=== PATIENT | female | born 1945 | race Hispanic/Latino ===

== ENCOUNTER 2020-07-12 10:45 | Inpatient (IN) | payer MEDICARE, SELFPAY ==
[2020-07-12] VITALS (10 sets, daily range): BP systolic 137–168; BP diastolic 57–77; PULSE 79–90; RESP 18–34; TEMP 36.7–37.1; O2SAT 89–98; BMI 28.3
--- NOTE | ~2020-07-12 | XR_ITS ---
EXAMINATION: XR chest 1V portable INDICATION: Shortness of breath and weakness TECHNIQUE: Portable AP chest at 1229 hours COMPARISON: None available FINDINGS: There are airspace opacities of the mid and lower lung zones, left greater than right. No p leural effusion or pneumothorax is identified. The cardiomediastinal silhouette is normal. IMPRESSION: 1. Airspace opacities of the mid and lower lung zones in a pattern consistent with COVID 19 pneumonia . Differential includes other infectious process, atelectasis, and pulmonary edema. Reviewed, dictated and finalized at location A. IMPRESSION: 1. Airspace opacities of the mid and lower lung zones in a pattern consistent w ith COVID 19 pneumonia. Differential includes other infectious process, atelect asis, and pulmonary edema.
--- NOTE | ~2020-07-12 | XR_ITS ---
EXAMINATION: XR chest 1V portable INDICATION: Shortness of breath, COVID 19 TECHNIQUE: Portable AP chest at 0528 hours COMPARISON: 07/13/2020 FINDINGS: Airspace opacities of the mid and lower lung zones persist with slight improvement on the l eft and slight worsening on the right. There is no pleural effusion or pneumothorax. The heart size i s normal. IMPRESSION: 1. Airspace opacities of the mid and lower lung zones, improved on the left and slightly worse on the right, in a pattern consistent with COVID 19 pneumonia. Reviewed, dictated and finalized at location A.
--- NOTE | 2020-07-12 10:55 | ECG_ITS ---
Measurements Intervals [place] Rate: 84 P: 23 MO: 149 QRS: -32 QRSD: 92 T: 63 QT: 336 QTc: 399 Interpretive Statements SINUS RHYTHM LEFT AXIS DEVIATION VOLTAGE CRITERIA FOR LVH MINIMAL Q WAVES- HIGH LATERAL LEADS BASELINE WANDER- I, II, AVR, AVL, AVF, V1-V6 BORDERLINE ECG Electronically Signed On 07-12-2020 12:12:35 CDT by Anselmo Jay D.O.
[2020-07-12 11:17] LABS: Hematocrit 33.8 % (37.0-47.0); Hemoglobin 11.8 g/dL (12.0-15.0); Immature Granulocyte Absolute 0.02 K/mm3 (0.00-0.031); Lymphocytes Absolute Auto 0.51 K/mm3 (0.9-3.2); Lymphocytes Percent Auto 24.6 % (18.3-44.2); Mean Corpuscular HGB Conc 34.9 g/dl (32-36); Mean Corpuscular Hemoglobin 30.2 pg (26-34); Mean Corpuscular Volume 86.4 fl (80-100); Mean Platelet Volume 12.9 fl (7.4-10.4); Monocytes Absolute Auto 0.5 K/mm3 (0.1-0.6); Monocytes Percent Auto 24.2 % (2.6-8.5); Neutrophils Percent Auto 50.2 % (45.5-73.1); Platelet Count Result 110 k/mm3 (150-375); Red Blood Count 3.91 M/mm3 (4.2-5.4); Red Cell Distribution Width 12.5 % (11.5-14.5); White Blood Count 2.1 K/mm3 (4.5-10.0)
[2020-07-12 11:28] LABS: Anion Gap 8 mmol/L (8-16); Blood Urea Nitrogen 11 mg/dL (7-17); Calcium 7.9 mg/dL (8.4-10.2); Carbon Dioxide 27 mmol/L (22-30); Chloride 94 mmol/L (98-107); Estimated CRCL calculation 69 ml/min; Estimated Glomerular Filt Rate > 60; Glucose 123 mg/dL (65-105); Potassium 3.6 mmol/L (3.4-5.0); Sodium 129 mmol/L (137-145)
--- NOTE | 2020-07-12 11:51 | ED.SOB ---
HPI - SOB/Dyspnea General Chief Complaint: Shortness of Breath/Dyspnea Stated Complaint: sob, weak, decreased appetite Time Seen by Provider: 07/12/20 11:51 Source: patient Mode of arrival: ambulatory Limitations: no limitations History of Present Illness HPI Narrative: Patient is a 75-year-old Icelandic-speaking female who presents for evaluation of shortness of breath. Patient has also reported a one-week history of weakness, decreased oral intake. Patient's daughter states she has not had anything to eat or drink in over 12 days. Patient has been nauseous without vomiting. Patient denies cough, reports intermittent fever, but no fever today. Patient denies numbness in her legs, just states that she feels weak all over. Patient's intubated with COVID-19 infection, he was admitted to the hospital on July 11. Patient has not been COVID swabbed at this point. Related Data Home Medications Medication Instructions Recorded Confirmed amlodipine DAILY 07/12/20 Allergies Allergy/AdvReac Type Severity Reaction Status Date / Time No Known Allergies Allergy Verified 07/12/20 10:54 Review of Systems Review of Systems: Narrative: CONSTITUTIONAL: Reports intermittent fever, no fever today ENT: Denies rhinorrhea, congestion, sore throat, or otalgia. CARDIOVASCULAR: Denies chest pain, palpitations, or edema. RESPIRATORY: Denies cough, reports shortness of breath GASTROINTESTINAL: Denies abdominal pain, reports nausea GENITOURINARY: Denies dysuria or hematuria. SKIN: Denies rash or itching. MUSCULOSKELETAL: Denies back pain, joint pain, or myalgia. NEUROLOGIC: Denies headache, numbness, reports feeling diffusely weak PMFSH Social History Social History Smoking status: Never smoker Gender identity (if verbalized by the patient): Female Exam Narrative: Exam Narrative: GENERAL: Awake, alert, conversant HEAD: Normocephalic, atraumatic. EYES: PERRLA and EOMI. ENT: Nares clear, no rhinorrhea or epistaxis. Mucous membranes moist. NECK: Supple. CHEST: Tachypneic, no poppy respiratory distress, mild increased work of breathing, rate in the 30s HEART: Regular rate, sinus rhythm ABDOMEN:Non distended, non tender EXTREMITIES: Normal range of motion. No edema. SKIN: Warm, dry, no rash. NEURO:No focal deficits. Alert and oriented x3 Course Vital Signs Vital signs: Vital Signs Temperature 37.1 C 07/12/20 10:49 Pulse Rate 89 07/12/20 10:49 Respiratory Rate 18 07/12/20 10:49 Blood Pressure 168/57 H 07/12/20 10:49 Pulse Oximetry 92 07/12/20 10:49 Temperature 37.1 C 07/12/20 10:49 Pulse Rate 89 07/12/20 11:46 Respiratory Rate 34 H 07/12/20 11:46 Blood Pressure 161/70 H 07/12/20 11:46 Pulse Oximetry 89 L 07/12/20 11:46 MDM - SOB/Dyspnea MDM Narrative Medical decision making narrative: Patient presented for evaluation of shortness of breath, diffuse weakness. Patient has no focal neurological deficits on exam. She has intact sensation. Laboratory results are consistent with COVID-19 viral infection. Patient is pancytopenic. She has a transaminitis. Chest x-ray notable for bilateral infiltrates. Given close contact with who is currently intubated in our intensive care unit with COVID-19 infection, will treat patient as presumptive positive. Will call with swab patient. Patient will be admitted on respiratory precautions, much more comfortable at 4 L oxygen with decreased work of breathing. She was given IV steroids in the ER. Will hold on antibiotics for now. Differential Diagnosis Differential diagnosis: Likely congestive heart failure, community acquired pneumonia, asthma with exacerbation and pulmonary embolism Lab Data Attestation: I reviewed the patient's lab results. Result diagrams: 07/12/20 11:04 07/12/20 11:04 Labs: Lab Results 07/12/20 07/12/20 07/12/20 Range/Units 11:04 11
[2020-07-12 12:12] LABS: CRP 7.7 mg/dL (<1.0)
[2020-07-12 12:12] LABS: Alveolar/Arterial O2 Gradient 148.5 mmHg; Carboxyhemoglobin 0.3 % THb (0-2.0); Fractional Inspired Oxygen 36 %; HCO3 ABG 21.6 mEq/l (22.0-26.0); Methemoglobin ABG 0.3 %THb (0-1.5); Oxygen Content ABG 16.1 %vol (16.0-22.0); Oxygen Saturation ABG 96.8 % (95.0-100.0); Oxyhemoglobin 94.3 % THb (90.0-100.0); PCO2 ABG 26.6 mmHg (35.0-45.0); PO2 ABG 77.3 mmHg (80.0-100.0); PO2 FiO2 Ratio Arterial Blood 2.15 %; Reduced Hemoglobin 5.1 %THb (0-5.0); Total Hemoglobin 12.1 g/dL (12.0-18.0)
[2020-07-12 12:14] LABS: Device NASAL CANNULA; Site Drawn LEFT BRACHIAL; pH ABG 7.528 (7.350-7.450)
[2020-07-12 12:15] LABS: Alanine Aminotransferase 57 U/L (4-35); Albumin Level 3.7 g/dL (3.5-5.1); Alkaline Phosphatase 54 U/L (38-126); Anion Gap 9 mmol/L (8-16); Aspartate Amino Transferase 108 U/L (14-36); Bilirubin,Total 0.4 mg/dL (0.2-1.3); Blood Urea Nitrogen 11 mg/dL (7-17); Calcium 7.9 mg/dL (8.4-10.2); Carbon Dioxide 27 mmol/L (22-30); Chloride 94 mmol/L (98-107); Estimated CRCL calculation 59 ml/min; Estimated Glomerular Filt Rate > 60; Glucose 123 mg/dL (65-105); Sodium 130 mmol/L (137-145)
[2020-07-12 13:20] LABS: Alanine Aminotransferase 59 U/L (4-35)
--- NOTE | 2020-07-12 14:54 | PM.IMHP ---
H&P: HPI History of Present Illness Date/Time: 07/12/20 14:54 Chief complaint: Covid 19 infection/Dehydration Narrative: Nereyda Victor is a 75 year old female Whose Daughter stated that she tested positive for covid 19 in the outpatient setting and her is here in the ICU with positive COVID. She started with symptoms about 13 days ago. She never did have any fever but she had chills and was very weak had lost the taste and smell With mildnausea vomiting and no diarrhea she does has decreased oral intake. She has hardly eaten anything for the last 12 days according to the daughter. the daughter speaks Amharic and is at the bedside in the emergency room. The daughters answering questions for me. The patient has been short of breath and came to the emergency room to be evaluated for. I did retest her because it was unclear if she really had been tested or not. The patient is very weak. She is afebrile at this point. She was placed on 4 L per nasal cannula. Chest x-ray noted for bilateral infiltrates. Patient was being treated for presumptive positive as her is in ICU and had been COVID positive. she has pancytopenia. patient was given steroids in the emergency room and she stated she started to feel somewhat better although she still in the oxygen. Date of service 07/12/2020 Review of Systems Review of Systems: All systems reviewed & are unremarkable except as noted in HPI and below Constitutional: Constitutional: Reports as per HPI and Reports no additional constitutional complaints Eyes: Eyes: Reports as per HPI and Reports no additional eye complaints ENT: Reports system reviewed and no additional complaints, except as documented and Reports Normal hearing present Cardiovascular: Cardiovascular: Reports no additional cardiovascular complaints Respiratory: Respiratory: Reports no additional respiratory complaints and Reports no additional respiratory complaints Gastrointestinal: Gastrointestinal: Reports as per HPI and Reports no additional gastrointestinal complaints Musculoskeletal: Musculoskeletal: Reports no additional musculoskeletal complaints Integumentary/Breasts: Skin/Breast: Reports system reviewed and no additional complaints, except as docu and Reports as per HPI Neurologic: Reports system reviewed and no additional complaints, except as documented, Reports as per HPI and Reports Normal hearing present Psychiatric: Psychiatric: Reports no additional psychiatric complaints and Reports as per HPI Endocrine: Endocrine: Reports no additional endocrine complaints Hematologic/Lymphatic: Hematologic/Lymphatic: Reports no additional hematologic/lymphatic complaints Allergic/Immunologic: Allergic/Immunologic: Reports no additional allergic/immunologic complaints PMFSH Past Medical History Medical History (Updated 07/12/20 @ 15:21 by Chio Melchor NP) Abnormal glucose Bilateral leg weakness Hypertension, essential, benign Iliotibial band syndrome of right side Surgical History Surgical History (Updated 07/12/20 @ 15:12 by Chio Melchor NP) No history of previous surgery Social History Social History (Updated 07/12/20 @ 15:14 by Chio Melchor NP) Social History: the patient is retired she has worked various jobs. She does not have a durable power securities attorney for healthcare. She desires to be full code. She had a children but 1 was a stillborn. She tried to smoke in school But did not smoke routine easily. She Does not use any alcohol marijuana or illicit drugs. Smoking packs per day: 0.2 Smoking cigarettes per day: 4.0 Years smoked: 10 Smoking pack-years: 2.00 Smoking status: Never smoker Alcohol intake: never Substance use: never Gender identity (if verbalized by the patient): Female Spiritual care concerns: No Meds Home Medications and Allergies Home Medications Medication Instructions Recorded Confirmed Type amlodipine 5 mg
[2020-07-12] MEDS: REMDESIVIR 200 MG/NS 250 ML 200 MG/250 ML BAG 250 MG IVPB (15:45)
[2020-07-12] MEDS: ONDANSETRON INJ 4 MG/2 ML VIAL IV PUSH (15:45)
[2020-07-12] MEDS: SODIUM CHLORIDE 0.9% IV 1,000 ML 100 ML IV CONT (15:45)
[2020-07-13] VITALS (13 sets, daily range): BP systolic 134–172; BP diastolic 58–73; PULSE 54–86; RESP 16–32; TEMP 35.5–37.2; O2SAT 91–97
[2020-07-13] MEDS: SODIUM CHLORIDE 0.9% IV 1,000 ML 100 ML IV CONT (05:39)
[2020-07-13 06:24] LABS: Basophils Percent Auto 0.6 % (0.2-1.2); Hematocrit 36.8 % (37.0-47.0); Hemoglobin 12.3 g/dL (12.0-15.0); Immature Granulocyte Absolute 0.01 K/mm3 (0.00-0.031); Immature Granulocyte Percent A 0.6 % (0-0.5); Lymphocytes Absolute Auto 0.34 K/mm3 (0.9-3.2); Mean Corpuscular HGB Conc 33.4 g/dl (32-36); Mean Corpuscular Hemoglobin 29.3 pg (26-34); Mean Corpuscular Volume 87.6 fl (80-100); Mean Platelet Volume 11.9 fl (7.4-10.4); Monocytes Absolute Auto 0.3 K/mm3 (0.1-0.6); Monocytes Percent Auto 19.4 % (2.6-8.5); Neutrophils Percent Auto 59.4 % (45.5-73.1); Platelet Count Result 134 k/mm3 (150-375); Red Cell Distribution Width 12.3 % (11.5-14.5)
[2020-07-13 06:46] LABS: White Blood Count 1.7 K/mm3 (4.5-10.0)
[2020-07-13 06:49] LABS: Burr Cells 1+ (NORMAL)
[2020-07-13 08:39] LABS: Alanine Aminotransferase 58 U/L (4-35); Albumin Level 3.4 g/dL (3.5-5.1); Alkaline Phosphatase 54 U/L (38-126); Anion Gap 10 mmol/L (8-16); Aspartate Amino Transferase 93 U/L (14-36); Bilirubin,Total 0.3 mg/dL (0.2-1.3); Blood Urea Nitrogen 14 mg/dL (7-17); CRP 7.9 mg/dL (<1.0); Calcium 7.5 mg/dL (8.4-10.2); Carbon Dioxide 23 mmol/L (22-30); Chloride 101 mmol/L (98-107); Estimated CRCL calculation 68 ml/min; Estimated Glomerular Filt Rate > 60; Glucose 148 mg/dL (65-105); Magnesium 2.3 mg/dL (1.6-2.3); Potassium 3.6 mmol/L (3.4-5.0); Sodium 134 mmol/L (137-145)
[2020-07-13] MEDS: amLODIPine BESYLATE 5 MG TABLET PO (08:45)
[2020-07-13 12:41] LABS: Alveolar/Arterial O2 Gradient 329.4 mmHg; Base Excess ABG -4.5 mEq/l (+/-2.0); Fractional Inspired Oxygen 60 %; HCO3 ABG 18.4 mEq/l (22.0-26.0); Modified Allen's Test Pass; Oxygen Content ABG 17.3 %vol (16.0-22.0); Oxygen Saturation ABG 94.2 % (95.0-100.0); Oxyhemoglobin 91.3 % THb (90.0-100.0); PCO2 ABG 28.3 mmHg (35.0-45.0); PO2 ABG 67.3 mmHg (80.0-100.0); PO2 FiO2 Ratio Arterial Blood 1.12 %; Site Drawn RIGHT RADIAL; Total Hemoglobin 13.5 g/dL (12.0-18.0); pH ABG 7.432 (7.350-7.450)
[2020-07-13 12:42] LABS: Device HIGH FLOW NASAL CANN
[2020-07-13 14:22] LABS: SARS-CoV-2 RNA PCR Positive
--- NOTE | 2020-07-13 14:45 | PM.IMPN ---
Progress Note: A&P Assessment and Plan (1) COVID-19: Code(s): U07.1 - COVID-19 Status: Acute Assessment and Plan: ----- Patient continues to require more and more oxygen although does not feel like she is distressed. Her COVID-19 test is positive and her inflammatory markers are elevated. She also has leukopenia as well. since she is requiring more oxygen, she is going to be moved to ICU as IMU status and will be monitored closer. Her IV fluids have been stopped earlier today. Will repeat inflammatory markers and chest x-ray tomorrow morning. She does have a guarded prognosis at this time. Continue room does severe and dexamethasone. (2) Pancytopenia: Code(s): D61.818 - Other pancytopenia Status: Acute Assessment and Plan: ----- Likely related to viral syndrome. Monitor (3) Hypertension, essential, benign: Code(s): I10 - Essential (primary) hypertension Status: Chronic Assessment and Plan: ----- last blood pressure 152/72. Continue Norvasc (4) Bilateral leg weakness: Code(s): R29.898 - Other symptoms and signs involving the musculoskeletal system Status: Acute Assessment and Plan: ----- likely due to viral syndrome and inability to eat and drink very well. Will order PT and OT (5) Hypoxia: Code(s): R09.02 - Hypoxemia Status: Acute Assessment and Plan: most likely due to the viral syndrome her chest x-ray (6) Acute respiratory failure with hypoxia: Code(s): J96.01 - Acute respiratory failure with hypoxia Status: Acute Assessment and Plan: ----- secondary to above. Continue oxygen supplementation. Additional Plan I spoke with the financial services specialist, Dr. Rivera about this patient. Plan to moved to ICU as IMU status for further monitoring. Time Spent With Patient Time with patient: 25 - 35 minutes Subjective Date/time seen: 07/13/20 14:45 Interval history: Pt is a 75-year-old female here for possible COVID pneumonia who was seen today. All of our interactions were through [facility] interpretation. Patient states that she is feeling slightly better when compared to yesterday but still feels short of breath. She was able to get up and walk to the bathroom but felt winded. Her cough is consistent. She has not been eating and drinking but was able to get a little soup down today. She has no chest pain, diarrhea, nausea, vomiting or constipation. Review of Systems Review of Systems: All systems reviewed & are unremarkable except as noted in HPI and below Exam Narrative: Exam Narrative: General: Well developed well nourished patient Resting comfortably in bed in no acute distress HEENT: normocephalic Neck: supple Neuro: Alert and oriented x4 CV:RRR Resp: patient currently on 10 L high-flow nasal cannula unable to speak in full sentences without dyspnea or retractions. Lungs were auscultated throughout disposable stethoscope which lower sensitivity but appeared clear. Abd: Soft, non distended. No pain to palpation. Positive bowel sounds Extremities: No swelling, erythema, or pain to palpation. Objective Data Vital Signs Vital Signs: Vital Signs - 24 hr 07/12/20 16:21 07/12/20 20:00 07/12/20 21:42 Temperature 98.0 F Pulse Rate 79 Respiratory Rate 22 H Blood Pressure 156/59 H Pulse Oximetry 94 94 95 07/13/20 00:00 07/13/20 04:00 07/13/20 08:00 Temperature 98.9 F 97 F L 97.7 F Pulse Rate 74 64 84 Respiratory Rate 22 H 20 18 Blood Pressure 148/58 H 134/60 172/61 H Pulse Oximetry 97 91 91 07/13/20 08:08 07/13/20 10:24 07/13/20 12:00 Temperature 97.9 F Pulse Rate 62 75 Respiratory Rate 18 Blood Pressure 152/73 H Pulse Oximetry 93 96 07/13/20 12:20 07/13/20 12:42 Temperature Pulse Rate Respiratory Rate Blood Pressure Pulse Oximetry 94 94 Intake/Output Intake/Output: Intake & Output 07/10/20 07/11/20
[2020-07-13] MEDS: REMDESIVIR 100 MG/NS 250 ML 100 MG/250 ML BAG 250 MG IVPB (16:00)
[2020-07-13] MEDS: ALBUTEROL SULFATE (*SP) AEROSOL 1 PUFF 2 PUFF INHALATION ×2 (16:24→21:11)
--- NOTE | 2020-07-13 18:59 | PC.NURSE ---
Pt to ICU 2 per PA due to low 02 sats requiring greater than 15L HFNC 02. Tried to call report to [facility], but he was unable to take report at this time. [facility] said to take her down. Bedside report given. Family called and made aware of transfer.
[2020-07-14] VITALS (11 sets, daily range): BP systolic 114–190; BP diastolic 55–76; PULSE 29–90; RESP 24–30; TEMP 35.4–36.4; O2SAT 83–94
[2020-07-14 04:55] LABS: Hematocrit 39.4 % (37.0-47.0); Hemoglobin 13.7 g/dL (12.0-15.0); Mean Corpuscular HGB Conc 34.8 g/dl (32-36); Mean Corpuscular Volume 86.2 fl (80-100); Mean Platelet Volume 12.7 fl (7.4-10.4); Platelet Count Result 195 k/mm3 (150-375); Red Blood Count 4.57 M/mm3 (4.2-5.4); Red Cell Distribution Width 12.6 % (11.5-14.5); White Blood Count 6.9 K/mm3 (4.5-10.0)
[2020-07-14 05:08] LABS: D Dimer 1.23 ug/mL (<0.48)
[2020-07-14 05:21] LABS: Alanine Aminotransferase 59 U/L (4-35); Albumin Level 3.6 g/dL (3.5-5.1); Alkaline Phosphatase 59 U/L (38-126); Anion Gap 9 mmol/L (8-16); Aspartate Amino Transferase 76 U/L (14-36); Bilirubin,Total 0.4 mg/dL (0.2-1.3); Blood Urea Nitrogen 16 mg/dL (7-17); CRP 4.7 mg/dL (<1.0); Calcium 7.7 mg/dL (8.4-10.2); Carbon Dioxide 23 mmol/L (22-30); Chloride 102 mmol/L (98-107); Estimated CRCL calculation 82 ml/min; Estimated Glomerular Filt Rate > 60; Glucose 156 mg/dL (65-105); Lactate Dehydrogenase 1199 U/L (313-618); Potassium 3.4 mmol/L (3.4-5.0); Sodium 134 mmol/L (137-145)
--- NOTE | 2020-07-14 08:05 | PCOTNOTE ---
Hold today per RN due to patient low saturation levels. Will attempt OT evaluation when medically appropriate.
[2020-07-14] MEDS: amLODIPine BESYLATE 5 MG TABLET PO (08:32)
[2020-07-14] MEDS: ALBUTEROL SULFATE (*SP) AEROSOL 1 PUFF 2 PUFF INHALATION ×3 (08:33→20:43)
--- NOTE | 2020-07-14 09:14 | PCPTNOTE ---
Pt eval on hold per RN due to low saturation levels. Will try again when medically stable.
--- NOTE | 2020-07-14 10:45 | PM.IMPN ---
Progress Note: A&P Assessment and Plan (1) COVID-19: Code(s): U07.1 - COVID-19 Status: Acute Assessment and Plan: ----- Patient continues to require more and more oxygen although does not feel like she is distressed. she has mostly hypoxic on any type of movement. COVID-19 is positive and inflammatory markers are elevated. Chest x-ray today looks a bit worse. She is now on 15 L high-flow but overall feeling okay. Continue Remdesivir and dexamethasone. (2) Pancytopenia: Code(s): D61.818 - Other pancytopenia Status: Acute Assessment and Plan: ----- Resolved. Likely related to viral syndrome. Monitor (3) Hypertension, essential, benign: Code(s): I10 - Essential (primary) hypertension Status: Chronic Assessment and Plan: ----- last blood pressure 174/75 but has improved after home meds. Continue Norvasc. There is PRN hydralazine as needed as well. (4) Bilateral leg weakness: Code(s): R29.898 - Other symptoms and signs involving the musculoskeletal system Status: Acute Assessment and Plan: ----- likely due to viral syndrome and inability to eat and drink very well. Continue PT and OT (5) Hypoxia: Code(s): R09.02 - Hypoxemia Status: Acute (6) Acute respiratory failure with hypoxia: Code(s): J96.01 - Acute respiratory failure with hypoxia Status: Acute Assessment and Plan: ----- secondary to above. Continue oxygen supplementation. Subjective Date/time seen: 07/14/20 10:45 Interval history: Pt is a 75-year-old female here for COVID-19. Patient was seen today with nurse at bedside and communicated through [facility]. Patient states she feels better today although she feels very winded when she moves. She would like to get out of bed but understands why she can't. She is not really coughing too much. She is eating and drinking a little better but has to force herself to do so. She denies chest pain, nausea, vomiting, fevers, chills, diarrhea or constipation. She does have a history of constipation and feels like she is little constipated but thinks it is mostly just having to go to the bathroom in bed Exam Narrative: Exam Narrative: General: Well developed well nourished patient Resting comfortably in bed in no acute distress HEENT: normocephalic Neck: supple Neuro: Alert and oriented x4 CV:RRR Resp: patient currently on 15 L high-flow nasal cannula able to speak in full sentences without dyspnea or retractions. when she does any type of movement she desats in the 80s. Lungs were auscultated through disposable stethoscope which lower sensitivity but appeared clear. Abd: Soft, non distended. No pain to palpation. Positive bowel sounds Extremities: No swelling, erythema, or pain to palpation. Objective Data Vital Signs Vital Signs: Vital Signs - 24 hr 07/13/20 12:00 07/13/20 12:20 07/13/20 12:42 Temperature 97.9 F Pulse Rate 75 Respiratory Rate 18 Blood Pressure 152/73 H Pulse Oximetry 96 94 94 07/13/20 15:36 07/13/20 16:00 07/13/20 16:25 Temperature 96.1 F L 96 F L Pulse Rate 76 77 78 Respiratory Rate 16 29 H 32 H Blood Pressure 163/70 H 152/72 H Pulse Oximetry 93 95 95 07/13/20 20:00 07/13/20 21:11 07/14/20 00:00 Temperature 97.1 F L 97.4 F L Pulse Rate 63 65 Respiratory Rate 25 H 28 H Blood Pressure 146/62 H 145/63 H Pulse Oximetry 97 91 93 07/14/20 04:00 07/14/20 05:00 07/14/20 06:21 Temperature 97.6 F Pulse Rate 81 71 Respiratory Rate 29 H 29 H Blood Pressure 172/69 H Pulse Oximetry 83 L 93 93 07/14/20 08:00 Temperature 96.3 F L Pulse Rate 80 Respiratory Rate 24 H Blood Pressure 174/75 H Pulse Oximetry 94 Intake/Output Intake/Output: Intake & Output 07/11/20 07/12/20 07/13/20 07/14/20 23:59 23:59 23:59 23:59 Intake Total 150 2355 180 Output Total 350 375 Balance 150 2004 - Meds/Results Karissa
[2020-07-14 12:56] LABS: Magnesium 2.2 mg/dL (1.6-2.3)
[2020-07-14] MEDS: REMDESIVIR 100 MG/NS 250 ML 100 MG/250 ML BAG 250 MG IVPB (15:55)
[2020-07-14] MEDS: hydrALAZINE HCL 20 MG/ML VIAL 10 MG IV PUSH (21:00)
[2020-07-14] MEDS: cloNIDine HCL 0.1 MG TABLET PO (23:14)
[2020-07-15] VITALS (25 sets, daily range): BP systolic 121–166; BP diastolic 49–99; PULSE 59–91; RESP 17–32; TEMP 35.5–36.3; O2SAT 91–99
[2020-07-15 05:58] LABS: Hematocrit 39.7 % (37.0-47.0); Mean Corpuscular HGB Conc 35.3 g/dl (32-36); Mean Corpuscular Hemoglobin 30.4 pg (26-34); Mean Corpuscular Volume 86.3 fl (80-100); Mean Platelet Volume 12.9 fl (7.4-10.4); Platelet Count Result 228 k/mm3 (150-375); Red Cell Distribution Width 12.7 % (11.5-14.5); White Blood Count 11.1 K/mm3 (4.5-10.0)
[2020-07-15 06:14] LABS: Potassium 3.2 mmol/L (3.4-5.0)
[2020-07-15 06:17] LABS: Alanine Aminotransferase 61 U/L (4-35); Anion Gap 9 mmol/L (8-16); Blood Urea Nitrogen 16 mg/dL (7-17); CRP 2.8 mg/dL (<1.0); Calcium 8.4 mg/dL (8.4-10.2); Carbon Dioxide 26 mmol/L (22-30); Chloride 97 mmol/L (98-107); Estimated CRCL calculation 68 ml/min; Estimated Glomerular Filt Rate > 60; Glucose 114 mg/dL (65-105); Magnesium 2.1 mg/dL (1.6-2.3); Phosphorus 2.9 mg/dL (2.5-4.5); Sodium 132 mmol/L (137-145)
[2020-07-15] MEDS: ALBUTEROL SULFATE (*SP) AEROSOL 1 PUFF 2 PUFF INHALATION ×4 (09:15→20:42)
[2020-07-15] MEDS: amLODIPine BESYLATE 5 MG TABLET PO (09:19)
[2020-07-15] MEDS: POTASSIUM CHLORIDE 20 MEQ TABLET 40 MEQ PO (09:23)
[2020-07-15] MEDS: LORazepam 0.5 MG TABLET PO (10:28)
[2020-07-15] MEDS: REMDESIVIR 100 MG/NS 250 ML 100 MG/250 ML BAG 250 MG IVPB (15:45)
--- NOTE | 2020-07-15 16:30 | PM.IMPN ---
Progress Note: A&P Assessment and Plan (1) COVID-19: Code(s): U07.1 - COVID-19 Status: Acute Assessment and Plan: ----- Patient is now requiring less o2 and is down to 7L but becomes hypoxic with any movements. COVID-19 is positive and inflammatory markers are elevated. Chest x-ray today looks a bit worse. Continue Remdesivir and dexamethasone. (2) Pancytopenia: Code(s): D61.818 - Other pancytopenia Status: Acute Assessment and Plan: ----- Resolved. Likely related to viral syndrome. Monitor (3) Hypertension, essential, benign: Code(s): I10 - Essential (primary) hypertension Status: Chronic Assessment and Plan: ----- last blood pressure 142/72 Continue Norvasc. There is PRN hydralazine as needed as well. (4) Bilateral leg weakness: Code(s): R29.898 - Other symptoms and signs involving the musculoskeletal system Status: Acute Assessment and Plan: ----- likely due to viral syndrome and inability to eat and drink very well. Continue PT and OT (5) Hypoxia: Code(s): R09.02 - Hypoxemia Status: Acute (6) Acute respiratory failure with hypoxia: Code(s): J96.01 - Acute respiratory failure with hypoxia Status: Acute Assessment and Plan: ----- secondary to above. Continue oxygen supplementation. Subjective Date/time seen: 07/15/20 16:30 Interval history: Pt is a 75-year-old female here for COVID-19. [facility] Patient was seen today and has no complaints. She says she feels better every day. She really wants some enchaladas and does not like our food here. She has no CP, SOB, abdominal pain, fevers, chills, nausea or vomiting. Exam Narrative: Exam Narrative: General: Well developed well nourished patient Resting comfortably in bed in no acute distress HEENT: normocephalic Neck: supple Neuro: Alert and oriented x4 CV:RRR Resp: patient currently on 7 L high-flow nasal cannula able to speak in full sentences without dyspnea or retractions. Lungs were auscultated through disposable stethoscope which lower sensitivity but appeared clear. Abd: Soft, non distended. No pain to palpation. Positive bowel sounds Extremities: No swelling, erythema, or pain to palpation. Objective Data Vital Signs Vital Signs: Vital Signs - 24 hr 07/14/20 20:00 07/14/20 20:43 07/14/20 21:00 Temperature 97.2 F L Pulse Rate 84 84 90 Respiratory Rate 27 H 28 H 25 H Blood Pressure 171/66 H 170/55 H Pulse Oximetry 91 92 92 07/14/20 22:53 07/15/20 00:00 07/15/20 04:00 Temperature 97.0 F L 97.4 F L Pulse Rate 71 87 Respiratory Rate 31 H 26 H Blood Pressure 190/66 H 128/55 L 154/96 H Pulse Oximetry 98 96 07/15/20 08:00 07/15/20 08:01 07/15/20 09:13 Temperature 97.3 F L Pulse Rate 78 71 86 Respiratory Rate 28 H 24 H Blood Pressure 166/74 H Pulse Oximetry 99 96 07/15/20 09:14 07/15/20 10:00 07/15/20 10:01 Temperature Pulse Rate 86 89 87 Respiratory Rate 24 H 18 Blood Pressure 145/99 H Pulse Oximetry 96 07/15/20 12:00 07/15/20 12:01 07/15/20 13:00 Temperature Pulse Rate 81 73 88 Respiratory Rate 20 24 H Blood Pressure 130/51 L Pulse Oximetry 92 97 07/15/20 13:01 07/15/20 14:00 07/15/20 14:01 Temperature 95.9 F L Pulse Rate 67 71 79 Respiratory Rate 32 H 24 H Blood Pressure 134/69 121/55 L Pulse Oximetry 96 96 07/15/20 15:01 07/15/20 15:42 07/15/20 15:45 Temperature Pulse Rate 91 86 Respiratory Rate 17 Blood Pressure 134/66 Pulse Oximetry 91 96 07/15/20 16:01 Temperature 96.8 F L Pulse Rate 81 Respiratory Rate 30 H Blood Pressure 142/72 H Pulse Oximetry 94 Intake/Output Intake/Output: Intake & Output 07/12/20 07/13/20 07/14/20 07/15/20 23:59 23:59 23:59 23:59 Intake Total 150 2355 670 620 Output Total 350 875 850 Balance 150 2004 Meds/
[2020-07-16] VITALS (19 sets, daily range): BP systolic 136–183; BP diastolic 61–76; PULSE 58–103; RESP 18–30; TEMP 36.3–36.6; O2SAT 91–98
[2020-07-16] MEDS: LORazepam 0.5 MG TABLET PO (03:31)
[2020-07-16 03:39] LABS: Hematocrit 38.7 % (37.0-47.0); Hemoglobin 13.3 g/dL (12.0-15.0); Mean Corpuscular HGB Conc 34.4 g/dl (32-36); Mean Corpuscular Hemoglobin 29.8 pg (26-34); Mean Corpuscular Volume 86.8 fl (80-100); Mean Platelet Volume 11.6 fl (7.4-10.4); Platelet Count Result 231 k/mm3 (150-375); Red Blood Count 4.46 M/mm3 (4.2-5.4); Red Cell Distribution Width 12.5 % (11.5-14.5); White Blood Count 7.2 K/mm3 (4.5-10.0)
[2020-07-16 03:56] LABS: Alanine Aminotransferase 53 U/L (4-35)
[2020-07-16 04:01] LABS: Anion Gap 8 mmol/L (8-16); Blood Urea Nitrogen 13 mg/dL (7-17); CRP 4.5 mg/dL (<1.0); Calcium 8.5 mg/dL (8.4-10.2); Carbon Dioxide 26 mmol/L (22-30); Chloride 100 mmol/L (98-107); Estimated CRCL calculation 57 ml/min; Estimated Glomerular Filt Rate > 60; Glucose 111 mg/dL (65-105); Lactate Dehydrogenase 1072 U/L (313-618); Potassium 3.4 mmol/L (3.4-5.0); Sodium 134 mmol/L (137-145)
[2020-07-16] MEDS: amLODIPine BESYLATE 5 MG TABLET PO (08:37)
[2020-07-16] MEDS: ALBUTEROL SULFATE (*SP) AEROSOL 1 PUFF 2 PUFF INHALATION ×4 (08:45→20:37)
--- NOTE | 2020-07-16 14:15 | PCPTNOTE ---
The PT treatment was unable to be completed today. Per PA, patient recently returned to bed and is tired. Will continue per Plan of Care frequency and duration.
--- NOTE | 2020-07-16 14:19 | PM.IMPN ---
Progress Note: A&P Assessment and Plan (1) COVID-19: Code(s): U07.1 - COVID-19 Status: Acute Assessment and Plan: ----- Patient is now requiring less o2 and is down to 5L but becomes hypoxic with movements. Okay to move out of ICU and onto a medical floor with tele/pulse ox. COVID-19 is positive and inflammatory markers are elevated. Continue Remdesivir and dexamethasone. (2) Pancytopenia: Code(s): D61.818 - Other pancytopenia Status: Acute Assessment and Plan: ----- Resolved. Likely related to viral syndrome. Monitor (3) Hypertension, essential, benign: Code(s): I10 - Essential (primary) hypertension Status: Chronic Assessment and Plan: ----- last blood pressure 136/61. Continue Norvasc. There is PRN hydralazine as needed as well. (4) Bilateral leg weakness: Code(s): R29.898 - Other symptoms and signs involving the musculoskeletal system Status: Acute Assessment and Plan: ----- likely due to viral syndrome and inability to eat and drink very well. Continue PT and OT (5) Hypoxia: Code(s): R09.02 - Hypoxemia Status: Acute (6) Acute respiratory failure with hypoxia: Code(s): J96.01 - Acute respiratory failure with hypoxia Status: Acute Assessment and Plan: ----- secondary to above. Continue oxygen supplementation. Subjective Date/time seen: 07/16/20 14:19 Interval history: Pt is a 75-year-old female here for COVID-19. Patient was seen today and communicated through [employer]. Patient was seen today and has no complaints other than being tired. She says she feels better every day. She was able to sit in the chair for awhile today but did feel sob when transferring. She has no CP, SOB, abdominal pain, fevers, chills, diarrhea, constipation, nausea or vomiting. Exam Narrative: Exam Narrative: General: Well developed well nourished patient Resting comfortably in bed in no acute distress HEENT: normocephalic Neck: supple Neuro: Alert and oriented x4 CV:RRR Resp: patient currently on 5 L high-flow nasal cannula able to speak in full sentences without dyspnea or retractions. Lungs were auscultated through disposable stethoscope which lower sensitivity but appeared clear. Abd: Soft, non distended. No pain to palpation. Positive bowel sounds Extremities: No swelling, erythema, or pain to palpation. Objective Data Vital Signs Vital Signs: Vital Signs - 24 hr 07/15/20 15:01 07/15/20 15:42 07/15/20 15:45 Temperature Pulse Rate 91 86 Respiratory Rate 17 Blood Pressure 134/66 Pulse Oximetry 91 96 07/15/20 16:00 07/15/20 16:01 07/15/20 18:00 Temperature 96.8 F L Pulse Rate 84 81 89 Respiratory Rate 30 H Blood Pressure 142/72 H Pulse Oximetry 94 07/15/20 20:00 07/15/20 20:42 07/15/20 20:45 Temperature 97.3 F L Pulse Rate 68 62 62 Respiratory Rate 26 H 24 H 24 H Blood Pressure 139/49 L Pulse Oximetry 96 96 07/15/20 22:00 07/15/20 23:37 07/16/20 00:00 Temperature Pulse Rate 59 L 60 59 L Respiratory Rate 19 25 H Blood Pressure 143/62 H Pulse Oximetry 91 92 07/16/20 02:00 07/16/20 03:35 07/16/20 04:00 Temperature Pulse Rate 60 76 70 Respiratory Rate 25 H Blood Pressure Pulse Oximetry 91 07/16/20 05:30 07/16/20 06:00 07/16/20 08:00 Temperature 97.8 F Pulse Rate 58 L 72 69 Respiratory Rate 22 H Blood Pressure 140/66 Pulse Oximetry 98 07/16/20 08:44 07/16/20 08:45 07/16/20 09:40 Temperature 98 F Pulse Rate 72 96 98 Respiratory Rate 22 H 18 Blood Pressure 163/76 H Pulse Oximetry 98 95 07/16/20 11:08 07/16/20 12:00 07/16/20 13:52 Temperature 98 F Pulse Rate 76 72 103 H Respiratory Rate 22 H 24 H Blood Pressure 136/61 Pulse Oximetry 95 96 Intake/Output Intake/Output: Intake & Output 07/13/20 07/14/20 07/15/20 07/16/20 23:59 23:59 23:59 23:59 Intake Total
[2020-07-16] MEDS: ENOXAPARIN 40 MG/0.4 ML SYRINGE SUB-Q (14:52)
[2020-07-16] MEDS: REMDESIVIR 100 MG/NS 250 ML 100 MG/250 ML BAG 250 MG IVPB (15:01)
[2020-07-17] VITALS (9 sets, daily range): BP systolic 126–197; BP diastolic 72–96; PULSE 67–86; RESP 18–26; TEMP 36.6–37; O2SAT 90–97
[2020-07-17 06:33] LABS: Anion Gap 7 mmol/L (8-16); Blood Urea Nitrogen 11 mg/dL (7-17); Calcium 8.3 mg/dL (8.4-10.2); Carbon Dioxide 27 mmol/L (22-30); Chloride 100 mmol/L (98-107); Estimated CRCL calculation 68 ml/min; Estimated Glomerular Filt Rate > 60; Glucose 119 mg/dL (65-105); Magnesium 1.8 mg/dL (1.6-2.3); Sodium 134 mmol/L (137-145)
[2020-07-17 07:21] LABS: Potassium 3.2 mmol/L (3.4-5.0)
[2020-07-17] MEDS: amLODIPine BESYLATE 5 MG TABLET 10 MG PO (08:10)
[2020-07-17] MEDS: POTASSIUM CHLORIDE 20 MEQ TABLET 40 MEQ PO (08:11)
[2020-07-17] MEDS: ENOXAPARIN 40 MG/0.4 ML SYRINGE SUB-Q (08:11)
[2020-07-17] MEDS: ALBUTEROL SULFATE (*SP) AEROSOL 1 PUFF 2 PUFF INHALATION ×3 (08:40→16:57)
--- NOTE | 2020-07-17 12:08 | PM.IMPN ---
Progress Note: A&P Assessment and Plan (1) COVID-19: Code(s): U07.1 - COVID-19 Status: Acute Assessment and Plan: ----- Patient is now requiring less o2 and is down to 2L but becomes hypoxic with movements. Okay to move out of ICU and onto a medical floor with tele/pulse ox. COVID-19 is positive and inflammatory markers are elevated. Remdesivir completed and will continue dexamethasone. (2) Pancytopenia: Code(s): D61.818 - Other pancytopenia Status: Acute Assessment and Plan: ----- Resolved. Likely related to viral syndrome. Monitor (3) Hypertension, essential, benign: Code(s): I10 - Essential (primary) hypertension Status: Chronic Assessment and Plan: ----- last blood pressure 143/78But has been running high lately. For unclear reasons, hydralazine was discontinued and I was not notified of this. For this reason, she has not been getting any p.r.n. medications for her blood pressures And her blood pressure readings were not relayed to me. I have increased her Norvasc to 10 mg daily. Will watch how she does. She states she has a lot of anxiety and hospitals and around doctors. (4) Bilateral leg weakness: Code(s): R29.898 - Other symptoms and signs involving the musculoskeletal system Status: Acute Assessment and Plan: ----- likely due to viral syndrome and inability to eat and drink very well. Continue PT and OT (5) Hypoxia: Code(s): R09.02 - Hypoxemia Status: Acute (6) Acute respiratory failure with hypoxia: Code(s): J96.01 - Acute respiratory failure with hypoxia Status: Acute Assessment and Plan: ----- secondary to above. Continue oxygen supplementation. Subjective Date/time seen: 07/17/20 12:08 Interval history: Pt is a 75-year-old female here for COVID-19. Patient was seen today and communicated through [employer]. She has no current complaints at this time. She is feeling better every day. She still has some shortness of breath with movements but again, that is feeling better. She does complain of weakness and has been working with physical therapy. She is eating more but again, does not like her food. She had a bowel movement a couple days ago. no chest pain Exam Narrative: Exam Narrative: General: Well developed well nourished patient Resting comfortably in the chair in no acute distress HEENT: normocephalic Neck: supple Neuro: Alert and oriented x4 CV:RRR Resp: patient currently on 2L nasal cannula able to speak in full sentences without dyspnea or retractions. Lungs were auscultated through disposable stethoscope which lower sensitivity but appeared clear. Abd: Soft, non distended. No pain to palpation. Positive bowel sounds Extremities: No swelling, erythema, or pain to palpation. Objective Data Vital Signs Vital Signs: Vital Signs - 24 hr 07/16/20 13:00 07/16/20 13:52 07/16/20 16:00 Temperature 97.4 F L Pulse Rate 103 H 84 Respiratory Rate 22 H Blood Pressure 171/73 H Pulse Oximetry 94 94 07/16/20 20:00 07/16/20 20:37 07/16/20 20:38 Temperature 98 F Pulse Rate 86 92 95 Respiratory Rate 30 H 20 24 H Blood Pressure 183/76 H Pulse Oximetry 91 91 07/16/20 22:13 07/17/20 00:00 07/17/20 04:00 Temperature Pulse Rate 69 67 75 Respiratory Rate 22 H 26 H Blood Pressure 165/72 H 178/90 H Pulse Oximetry 94 96 07/17/20 08:00 07/17/20 08:41 07/17/20 10:00 Temperature 98.5 F Pulse Rate 85 83 Respiratory Rate 24 H Blood Pressure 197/76 H 172/72 H Pulse Oximetry 96 95 95 07/17/20 10:20 07/17/20 12:00 Temperature Pulse Rate 74 Respiratory Rate 20 Blood Pressure 159/73 H 143/78 H Pulse Oximetry 95 Intake/Output Intake/Output: Intake & Output 07/14/20 07/15/20 07/16/20 07/17/20 23:59 23:59 23:59 23:59 Intake Total 751 150 2798 750 Output Total 877 1150 1999 8944 Balance -205 -280 -670
[2020-07-17] MEDS: polyethylene glycoL 3350 17 GM POWD.PACK PO (14:01)
--- NOTE | 2020-07-17 18:52 | PC.NURSE ---
Recived report from [facility] from ICU. 1800
--- NOTE | 2020-07-17 18:53 | PCDIET ---
Pt received from ICU 1845 via wheel chair. Pt situated in room.A/Ox3. No distress noted. 2 L o2 NC. No pain observed by this nurse or expressed from pt.
[2020-07-18] VITALS (10 sets, daily range): BP systolic 154–171; BP diastolic 52–88; PULSE 58–106; RESP 18–20; TEMP 36.4–37; O2SAT 88–100
[2020-07-18 07:03] LABS: Potassium 3.9 mmol/L (3.4-5.0)
[2020-07-18 07:10] LABS: Alanine Aminotransferase 47 U/L (4-35); Albumin Level 3.9 g/dL (3.5-5.1); Alkaline Phosphatase 65 U/L (38-126); Anion Gap 10 mmol/L (8-16); Aspartate Amino Transferase 35 U/L (14-36); Bilirubin,Total 0.6 mg/dL (0.2-1.3); Blood Urea Nitrogen 15 mg/dL (7-17); CRP 2.5 mg/dL (<1.0); Carbon Dioxide 27 mmol/L (22-30); Chloride 97 mmol/L (98-107); Estimated CRCL calculation 57 ml/min; Estimated Glomerular Filt Rate > 60; Glucose 115 mg/dL (65-105); Lactate Dehydrogenase 883 U/L (313-618); Magnesium 1.9 mg/dL (1.6-2.3); Sodium 134 mmol/L (137-145)
[2020-07-18 07:40] LABS: D Dimer 2.34 ug/mL (<0.48)
--- NOTE | 2020-07-18 08:23 | PC.NURSE ---
Used the [employer] to speak with this pt. Interpreters name was Jagdish. Pt has no SOB, or pain. Is concered with Bp and getting her medicine for this morning. I told her I would be giving her morning medicines soon.She had no further questions for the day.
[2020-07-18] MEDS: amLODIPine BESYLATE 5 MG TABLET 10 MG PO (08:38)
[2020-07-18] MEDS: polyethylene glycoL 3350 17 GM POWD.PACK PO (08:39)
[2020-07-18] MEDS: ENOXAPARIN 40 MG/0.4 ML SYRINGE SUB-Q (08:39)
[2020-07-18] MEDS: ALBUTEROL SULFATE (*SP) AEROSOL 1 PUFF 2 PUFF INHALATION ×4 (10:04→20:54)
--- NOTE | 2020-07-18 11:19 | PM.IMPN ---
Progress Note: A&P Assessment and Plan (1) COVID-19: Code(s): U07.1 - COVID-19 Status: Acute Assessment and Plan: ----- Patient is now requiring less o2 and is down to 2L but becomes hypoxic with movements. We tried to wean her off today but she dropped to 88. Continue o2. COVID-19 is positive and inflammatory markers are elevated. Remdesivir completed and will continue dexamethasone. (2) Pancytopenia: Code(s): D61.818 - Other pancytopenia Status: Acute Assessment and Plan: ----- Resolved. Likely related to viral syndrome. Monitor (3) Hypertension, essential, benign: Code(s): I10 - Essential (primary) hypertension Status: Chronic Assessment and Plan: ----- last blood pressure 171/66 But has been running high lately. For unclear reasons, hydralazine was discontinued and I was not notified of this. For this reason, she has not been getting any p.r.n. medications for her blood pressures And her blood pressure readings were not relayed to me. her norvasc was increased 9/5 to 10mg. If she still runs high today I may start her on an additional bp medication. She states she has a lot of anxiety and hospitals and around doctors. (4) Bilateral leg weakness: Code(s): R29.898 - Other symptoms and signs involving the musculoskeletal system Status: Acute Assessment and Plan: ----- likely due to viral syndrome and inability to eat and drink very well. Continue PT and OT (5) Hypoxia: Code(s): R09.02 - Hypoxemia Status: Acute (6) Acute respiratory failure with hypoxia: Code(s): J96.01 - Acute respiratory failure with hypoxia Status: Acute Assessment and Plan: ----- secondary to above. Continue oxygen supplementation. Subjective Date/time seen: 07/18/20 11:19 Interval history: Pt is a 75-year-old female here for COVID-19. Patient was seen today and communicated through [employer]. She has no current complaints at this time. She is feeling better every day. She is still constipated. She feels stronger every day and is eating more. She is very excited her is being moved into her room and cannot wait to see him. Exam Narrative: Exam Narrative: General: Well developed well nourished patient Resting comfortably in the bed in no acute distress HEENT: normocephalic Neck: supple Neuro: Alert and oriented x4 CV:RRR Resp: patient currently on 2L nasal cannula able to speak in full sentences without dyspnea or retractions. Lungs were auscultated through disposable stethoscope which lower sensitivity but appeared clear. Abd: Soft, non distended. No pain to palpation. Positive bowel sounds Extremities: No swelling, erythema, or pain to palpation. Objective Data Vital Signs Vital Signs: Vital Signs - 24 hr 07/17/20 12:00 07/17/20 16:00 07/17/20 20:00 Temperature 98.6 F 97.8 F Pulse Rate 74 85 77 Respiratory Rate 20 18 18 Blood Pressure 143/78 H 157/72 H 126/96 H Pulse Oximetry 95 97 90 07/18/20 00:00 07/18/20 04:00 07/18/20 08:00 Temperature 97.9 F 97.6 F 98.6 F Pulse Rate 66 80 77 Respiratory Rate 20 20 18 Blood Pressure 167/69 H 164/88 H 171/66 H Pulse Oximetry 93 95 97 07/18/20 10:06 07/18/20 10:12 Temperature Pulse Rate Respiratory Rate Blood Pressure Pulse Oximetry 88 L 93 Intake/Output Intake/Output: Intake & Output 07/15/20 07/16/20 07/17/20 07/18/20 23:59 23:59 23:59 23:59 Intake Total 870 1330 1350 300 Output Total 1150 2000 2700 Balance -280 -670 -1350 300 Meds/Results Medications: Active Medications Generic Name Dose Route Start Last Admin Trade Name Freq PRN Reason Stop Dose Admin Acetaminophen 650 mg 07/12/20 12:47 Tylenol Tablet PO Q4H PRN Mild Pain (1-3) or Fever Albuterol 2 puff 07/13/20 16:00 07/18/20 10:04 Proventil Hfa INHALATION 2 puff QIDRT KALEIGH Administration Amlodipine Besylate
[2020-07-18] MEDS: MAGNESIUM HYDROXIDE SUSP 30 ML UDC PO (13:55)
[2020-07-19] VITALS: BP 170/69; PULSE 69; PULSE 89; RESP 20; TEMP 36.7; O2SAT 95
[2020-07-19 04:00] VITALS: BP 170/66; PULSE 62; PULSE 68; RESP 20; TEMP 36.8; O2SAT 99
[2020-07-19 06:40] LABS: Hematocrit 35.8 % (37.0-47.0); Mean Corpuscular HGB Conc 33.5 g/dl (32-36); Mean Corpuscular Hemoglobin 29.7 pg (26-34); Mean Corpuscular Volume 88.6 fl (80-100); Platelet Count Result 289 k/mm3 (150-375); Red Blood Count 4.04 M/mm3 (4.2-5.4); Red Cell Distribution Width 12.8 % (11.5-14.5); White Blood Count 6.1 K/mm3 (4.5-10.0)
[2020-07-19 06:52] LABS: Alanine Aminotransferase 37 U/L (4-35); Albumin Level 3.5 g/dL (3.5-5.1); Alkaline Phosphatase 60 U/L (38-126); Anion Gap 8 mmol/L (8-16); Aspartate Amino Transferase 28 U/L (14-36); Bilirubin,Total 0.4 mg/dL (0.2-1.3); Blood Urea Nitrogen 19 mg/dL (7-17); Calcium 8.7 mg/dL (8.4-10.2); Carbon Dioxide 27 mmol/L (22-30); Chloride 97 mmol/L (98-107); Estimated CRCL calculation 50 ml/min; Estimated Glomerular Filt Rate > 60; Glucose 119 mg/dL (65-105); Potassium 4.2 mmol/L (3.4-5.0); Sodium 132 mmol/L (137-145)
[2020-07-19 08:00] VITALS: BP 169/53; PULSE 55; PULSE 64; PULSE 66; RESP 18; TEMP 36.9; O2SAT 93; O2SAT 96
--- NOTE | 2020-07-19 08:49 | PC.NURSE ---
Spoken to Nereyda via [facility] Interpretor by way of [employer] jeanmarie.SHe said he breathing felt normal this morning. She has no pain.
[2020-07-19 08:55] VITALS: PULSE 84; RESP 18; O2SAT 95
[2020-07-19] MEDS: ALBUTEROL SULFATE (*SP) AEROSOL 1 PUFF 2 PUFF INHALATION ×2 (08:55→11:55)
[2020-07-19 09:17] VITALS: PULSE 66; RESP 18; O2SAT 96
[2020-07-19] MEDS: amLODIPine BESYLATE 5 MG TABLET 10 MG PO (09:22)
[2020-07-19] MEDS: polyethylene glycoL 3350 17 GM POWD.PACK PO (09:23)
[2020-07-19] MEDS: ENOXAPARIN 40 MG/0.4 ML SYRINGE SUB-Q (09:23)
[2020-07-19] MEDS: LOSARTAN POTASSIUM 25 MG TABLET PO (09:23)
--- NOTE | 2020-07-19 11:03 | PM.DS ---
DS: Admitting Diagnosis Admitting Diagnosis Admitting Diagnosis: Covid 19 infection/Dehydration DS: Discharge Diagnosis Discharge Diagnosis (1) COVID-19: Code(s): U07.1 - COVID-19 Status: Acute Assessment and Plan: -----Pt was hospitalized and utaliazed o2 for one week but was able to be weaned off. Respiratory walked her before discharge and determined she did not need o2 at home. During her stay she completed Remdesivir and dexamethasone. (2) Pancytopenia: Code(s): D61.818 - Other pancytopenia Status: Acute Assessment and Plan: ----- Resolved. Likely related to viral syndrome. (3) Hypertension, essential, benign: Code(s): I10 - Essential (primary) hypertension Status: Chronic Assessment and Plan: ----- last blood pressure 144/51. But ran high throughout her stay. her norvasc was increased 9/5 to 10mg but she still ran high and losartan was added. she is to follow up with her pcp about her bp. (4) Bilateral leg weakness: Code(s): R29.898 - Other symptoms and signs involving the musculoskeletal system Status: Acute Assessment and Plan: ----- Improved. did work with PT/OT (5) Hypoxia: Code(s): R09.02 - Hypoxemia Status: Acute (6) Acute respiratory failure with hypoxia: Code(s): J96.01 - Acute respiratory failure with hypoxia Status: Acute Assessment and Plan: ----- secondary to above. off o2 day of discharge. DS: Summary Hospital Course Reason for hospitalization: COVID-19 Hospital Course: Patient is a 75-year-old female who presented emergency room with shortness of breath found to be COVID positive. Patient was admitted to the hospitalist service and utilized oxygen throughout her stay. She received Remdesivir and dexamethasone and was monitored closely. She utilized up to 15 L high-flow oxygen but was able to be weaned off on discharge. She had high blood pressure throughout her stay and additional medications were added. The patient had slow improvement but the day discharge she felt back to her baseline and felt stronger with physical therapy. Please see above for further details. Patient was educated about the worrisome signs and symptoms to come back to the emergency room for and was discharged in stable condition Status at Discharge Functional status at discharge: independent ambulation Time Spent with Patient Time attestation: Total time spent providing and/or coordinating discharge services:36 min Time spent: Greater than 30 minutes Exam Narrative: Exam Narrative: General: Well developed well nourished patient Resting comfortably in the bed in no acute distress HEENT: normocephalic Neck: supple Neuro: Alert and oriented x4 CV:RRR Resp: Lungs were auscultated through disposable stethoscope which lower sensitivity but appeared clear. not on any o2 Abd: Soft, non distended. No pain to palpation. Positive bowel sounds Extremities: No swelling, erythema, or pain to palpation. DS: Data Data Completed and Pending Labs on day of discharge: Labs from last 24 hours 07/19/20 07/19/20 06:33 06:33 WBC 6.1 RBC 4.04 L Hgb 12.0 Hct 35.8 L MCV 88.6 MCH 29.7 MCHC 33.5 RDW 12.8 Plt Count 289 MPV 11.0 H Sodium 132 L Potassium 4.2 Chloride 97 L Carbon Dioxide 27 Anion Gap 8 BUN 19 H Creatinine 0.70 Estim Creat Clear Calc 50 Estimated GFR > 60 Glucose 119 H Calcium 8.7 Total Bilirubin 0.4 AST 28 ALT 37 H Alkaline Phosphatase 60 Total Protein 6.0 L Albumin 3.5 Discharge Plan Discharge Attending physician on discharge: Olman Crowell Consulting providers: Chio Melchor ; Rudy Richards ; Anselmo Jay Discharging Clinician: Gia Wynn Patient Disposition: Home Health Service Activity: as tolerated Diet: as tolerated and regular Discharge Instructions: - To RN:
[2020-07-19 12:00] VITALS: BP 144/51; PULSE 70; PULSE 74; RESP 18; TEMP 37.8; O2SAT 95
== END 2020-07-19 14:49 | disposition home health service (06) | DRG 177 ==
LOC: ANHED 12:45 → ANH3MEDSUR 13:49 → ANHICU 07-15 14:06 → ANH3MEDSUR 07-19 09:55 → ANHICU 07-23 11:03
PROVIDERS: Nurse Practitioner; Admitting Provider Family Medicine; Emergency Provider Emergency Medicine; PCP Internal Medicine; Visit Provider Physician Assistant
DX: U07.1 COVID-19 (principal); J96.01 Acute respiratory failure with hypoxia; D61.818 Other pancytopenia; R29.898 Other symptoms and signs involving the musculoskeletal system; I10 Essential (primary) hypertension
CPT/HCPCS: 36415; 36600; 71045; 80048; 80053; 80076; 82375; 82728; 82805; 83050; 83615; 83735; 84100; 84443; 84460; 85025; 85027; 85380; 86140; 87635; 93005; 94640; 97110; 97116; 97161; 97165; 97530; 97535; 99291; A9270; C9803; J0360; J1100; J1650; J2405; J7030; U0003

== ENCOUNTER 2021-09-22 17:22 | Emergency (ER) | payer MEDICARE, SELFPAY ==
[2021-09-22 17:35] VITALS: BP 217/59; PULSE 82; RESP 16; TEMP 36.8; O2SAT 100
[2021-09-22 17:50] VITALS: BP 220/100
--- NOTE | 2021-09-22 18:06 | ED.LOWEXIN ---
HPI - Extremity Injury (Lower) General Chief Complaint: Extremity Injury, Lower Stated Complaint: right knee pain History of Present Illness HPI Narrative: This is a 76 year old female that present to urgent care with Right knee patient that has increasely gotten worse and continue to hurt. Paient normally ambulate without difficulties but the pain is so bad she is now requiring a walker due to the pain . Has High blood pressure to nausea, vomiting, headache , chest pain or pressure. Patient states every time she is around dr her blood pressure is high she takes her medication like she is supposed to Related Data Allergies Allergy/AdvReac Type Severity Reaction Status Date / Time hydralazine AdvReac Nausea and Verified 09/22/21 17:49 Vomiting Review of Systems Review of Systems: right leg swelling and walker All systems reviewed & are unremarkable except as noted in HPI and below PMFSH Past Medical History Medical History Abnormal glucose Bilateral leg weakness COVID-19 Encounter for screening for lipid disorder Hypertension, essential, benign Iliotibial band syndrome of right side Surgical History Surgical History No history of previous surgery Social History Social History Social History: the patient is retired she has worked various jobs. She does not have a durable power contracts attorney for healthcare. She desires to be full code. She had a children but 1 was a stillborn. She tried to smoke in school But did not smoke routine easily. She Does not use any alcohol marijuana or illicit drugs. Smoking packs per day: 0.2 Smoking cigarettes per day: 4.0 Years smoked: 10 Smoking pack-years: 2.00 Smoking status: Never smoker Alcohol intake: never Substance use: never Gender identity (if verbalized by the patient): Female Spiritual care concerns: No Comments At time as signature, I have reviewed and agree with nursing past medical, social, surgical and family history. Please see nursing chart for further information. There is no relevant family history pertinent to the presenting complaint. Exam Narrative: GENERAL:Well-appearing, well-nourished, and in no acute distress. HEAD:Normocephalic, EYES: PERRLA ENT: Nares clear, no rhinorrhea or epistaxis. CHEST: Clear to auscultation. No respiratory distress. HEART: Regular rate and rhythm. ABDOMEN: Soft, nontender EXTREMITIES: decreased range of motion due to pain . mild edema. SKIN: Warm, dry, no rash. NEURO: No focal deficits. Alert and oriented x3. Hypertensive Course Course Emergency Course: discussed with patient about just treating her knee pain and having her sign AMA about going to the hospital but at this time patient has chosen to go to the hospital Vital Signs Vital signs: Vital Signs Temperature 98.3 F 09/22/21 17:35 Pulse Rate 82 09/22/21 17:35 Respiratory Rate 16 09/22/21 17:35 Blood Pressure 217/59 H 09/22/21 17:35 Pulse Oximetry 100 09/22/21 17:35 Temperature 98.3 F 09/22/21 17:35 Pulse Rate 82 09/22/21 17:35 Respiratory Rate 16 09/22/21 17:35 Blood Pressure 217/59 H 09/22/21 17:35 Pulse Oximetry 100 09/22/21 17:35 MDM - Extremity Injury (Lower) Differential Diagnosis Differential diagnosis: Likely ankle sprain and strain Discharge Plan Discharge Clinical Impression: Hypertensive crisis Acute knee pain Qualifiers: Laterality: right Qualified Code(s): M25.561 - Pain in right knee Patient Disposition: Acute Care Hospital Condition: Stable Instructions: Antibiotic Form Additional Instructions: Discussed risk of hypertension Prescriptions: No Action amlodipine [Norvasc] 5 mg tablet 10 mg PO DAILY Qty: 60 RF: 3 Follow-up/Referrals: UNKNOWN,DOCTOR [Primary Care Provider]
== END 2021-09-22 18:10 | disposition short-term general hospital (02) ==
PROVIDERS: Emergency Provider Nurse Practitioner Family
DX: I16.9 Hypertensive crisis, unspecified (principal); M25.561 Pain in right knee; Z86.16 Personal history of COVID-19
CPT/HCPCS: 99212; G0463

== ENCOUNTER 2021-09-22 18:37 | Emergency (ER) | payer MEDICARE, SELFPAY ==
--- NOTE | ~2021-09-22 | XR_ITS ---
EXAMINATION: XR chest 2V EXAM DATE: 09/22/2021 19:37 INDICATION: HTN, BP 220/100 . TECHNIQUE: Frontal and lateral projections of the chest obtained and reviewed. Comparison is made to prior examination from 07/14/2020. FINDINGS: Cardiomegaly and pulmonary vascular congestion. There is aortic arteriosclerosis. No confl uent consolidation, pneumothorax or pleural effusion suspected. There are mild bony degenerative merrill nges. Mild lumbar levoscoliosis. IMPRESSION: 1. Mild cardiomegaly, pulmonary vascular congestion. Reviewed, dictated and finalized at location A. ING MAKEUP ARTIST
--- NOTE | ~2021-09-22 | XR_ITS ---
EXAMINATION: XR knee RT 3V EXAM DATE: 09/22/2021 19:38 INDICATION: Lateral Knee Pain/Swelling, No Known Injury. TECHNIQUE: Three projections of the right knee. There is no prior study for comparison. FINDINGS: No evidence osteochondral defect or joint body in the right knee joint. There is mild me niscal calcification, chondrocalcinosis. Chondrocalcinosis can be an age related finding, but with ot her possible etiologies including CPPD, parathyroid disorders, hemochromatosis, gout. There is modera te patellofemoral, mild tibiofemoral primary osteoarthritis. There are no acute fractures or dislocat ions identified. There is no subcutaneous gas. There is small to moderate-sized joint effusion. Th ere are no radiopaque foreign bodies. IMPRESSION: 1. Small to moderate joint effusion. 2. Moderate patellofemoral osteoarthritis. 3. Chondrocalcinosis. Reviewed, dictated and finalized at location A. RY VENEER MACHINE OPERATOR
[2021-09-22 18:47] VITALS: BP 249/82; PULSE 110; RESP 18; TEMP 36.2; O2SAT 100
--- NOTE | 2021-09-22 19:00 | ECG_ITS ---
Measurements Intervals Brohman Rate: 84 P: 40 UT: 140 QRS: -26 QRSD: 94 T: 118 QT: 371 QTc: 439 Interpretive Statements SINUS RHYTHM INCOMPLETE RIGHT BUNDLE BRANCH BLOCK DELAYED PRECORDIAL R/S TRANSITION LEFT VENTRICULAR HYPERTROPHY AND ST-T CHANGE MINIMAL Q WAVES- HIGH LATERAL LEADS BASELINE ARTIFACT- I, III, AVL BORDERLINE ECG Electronically Signed On 09-23-2021 15:13:08 [employer] by Anselmo Jay D.O.
[2021-09-22 19:13] LABS: Basophils Percent Auto 0.3 % (0.2-1.2); Eosinophils Absolute Auto 0.1 K/mm3 (0-0.3); Eosinophils Percent Auto 2.8 % (0-4.4); Hemoglobin 12.6 g/dL (12.0-15.0); Immature Granulocyte Absolute 0.02 K/mm3 (0.00-0.031); Immature Granulocyte Percent A 0.6 % (0-0.5); Lymphocytes Absolute Auto 1.53 K/mm3 (0.9-3.2); Mean Corpuscular HGB Conc 33.2 g/dl (32-36); Mean Corpuscular Hemoglobin 30.7 pg (26-34); Mean Corpuscular Volume 92.5 fl (80-100); Mean Platelet Volume 11.8 fl (7.4-10.4); Monocytes Absolute Auto 0.7 K/mm3 (0.1-0.6); Monocytes Percent Auto 19.4 % (2.6-8.5); Neutrophils Absolute Auto 1.2 K/mm3 (1.3-6.7); Neutrophils Percent Auto 33.9 % (45.5-73.1); Platelet Count Result 241 k/mm3 (150-375); Red Blood Count 4.11 M/mm3 (4.2-5.4); Red Cell Distribution Width 12.9 % (11.5-14.5); White Blood Count 3.6 K/mm3 (4.5-10.0)
[2021-09-22 19:26] LABS: INR 0.9; Partial Thromboplastin Time 24.9 SECONDS (22.3-36.8); Prothrombin Time 12.4 Seconds (11.1-14.7)
[2021-09-22 19:33] LABS: Anion Gap 13 mmol/L (8-16); Blood Urea Nitrogen 15 mg/dL (7-17); Calcium 10.3 mg/dL (8.4-10.2); Carbon Dioxide 28 mmol/L (22-30); Chloride 103 mmol/L (98-107); Estimated CRCL calculation 50 ml/min; Estimated Glomerular Filt Rate > 60; Glucose 151 mg/dL (65-110); Potassium 3.8 mmol/L (3.4-5.0); Sodium 144 mmol/L (137-145)
[2021-09-22 19:44] LABS: Troponin I < 0.012 ng/mL (0.000-0.034)
[2021-09-22 20:14] VITALS: BP 217/79; PULSE 100; RESP 18; O2SAT 99
--- NOTE | 2021-09-22 23:00 | ED.RECABL ---
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 (Patient prefers to use her daughter to interpret) Mode of arrival: ambulatory Limitations: no limitations History of Present Illness HPI narrative: 76-year-old female Patient complains of atraumatic pain and swelling in her right knee She went to an urgent care to see about this and they noticed her blood pressure was quite high and sent her to the ED She does not have any symptoms which would be referable or concerning regarding her blood pressure, specifically no headache, no neurologic symptoms, no nausea or vomiting, no chest pain, no shortness of breath, no new edema She has a known history of hypertension and has a prescription for amlodipine, however she was confused about how it was written which was 2 5 mg tablets daily and had only been taking 1 5 mg tablet daily Related Data Allergies Allergy/AdvReac Type Severity Reaction Status Date / Time hydralazine AdvReac Nausea and Verified 09/22/21 17:49 Vomiting Review of Systems Review of Systems: All systems reviewed & are unremarkable except as noted in HPI and below Constitutional: Constitutional: Reports no additional constitutional complaints, Denies chills, Denies fatigue, Denies fever(s), Denies headache(s) and Denies weakness Eyes: Eyes: Reports no additional eye complaints and Denies change in vision ENT: Denies headache(s) and Denies sore throat Cardiovascular: Cardiovascular: Denies chest pain, Denies radiating jaw, neck or arm pain and Denies dyspnea Respiratory: Respiratory: Denies cough and Denies dyspnea Gastrointestinal: Gastrointestinal: Denies abdominal pain, Denies diarrhea, Denies nausea and Denies vomiting Genitourinary: Genitourinary: Denies urinary frequency and Denies dysuria Musculoskeletal: Musculoskeletal: Denies deformity, Reports arthralgias, Reports joint swelling and Denies numbness Integumentary/Breasts: Skin/Breast: Denies rash and Denies wounds Neurologic: Denies headache(s), Denies focal weakness and Denies numbness Psychiatric: Psychiatric: Reports no additional psychiatric complaints Endocrine: Endocrine: Reports no additional endocrine complaints Hematologic/Lymphatic: Hematologic/Lymphatic: Reports no additional hematologic/lymphatic complaints Allergic/Immunologic: Allergic/Immunologic: Reports no additional allergic/immunologic complaints PMFSH Past Medical History Medical History Abnormal glucose Bilateral leg weakness COVID-19 Encounter for screening for lipid disorder Hypertension, essential, benign Iliotibial band syndrome of right side Surgical History Surgical History No history of previous surgery Social History Social History Social History: the patient is retired she has worked various jobs. She does not have a durable power environmental attorney for healthcare. She desires to be full code. She had a children but 1 was a stillborn. She tried to smoke in school But did not smoke routine easily. She Does not use any alcohol marijuana or illicit drugs. Smoking packs per day: 0.2 Smoking cigarettes per day: 4.0 Years smoked: 10 Smoking pack-years: 2.00 Smoking status: Never smoker Alcohol intake: never Substance use: never Gender identity (if verbalized by the patient): Female Spiritual care concerns: No Exam Const: General: cooperative, no acute distress and alert Orientation/consciousness: patient oriented x3 (alert) HENMT: Head: normal to inspection, normocephalic and atraumatic Ears: external ears normal General nose exam: no epistaxis Eyes: Conjunctivae: conjunctivae normal EOM: EOMs intact bilaterally Neck: Neck: n
[2021-09-22 23:06] VITALS: BP 202/69; PULSE 79; RESP 18; O2SAT 100
[2021-09-22] MEDS: amLODIPine BESYLATE 5 MG TABLET 10 MG PO (23:09)
[2021-09-22] MEDS: NITROGLYCERIN SL 0.4 MG TABLET SUBLINGUAL (23:13)
--- NOTE | 2021-09-22 23:14 | PC.NURSE ---
RONY Wilsonon to administer amlodipine and nitro tablet at this time.
[2021-09-22 23:30] VITALS: BP 184/80; PULSE 81; RESP 18; O2SAT 100
[2021-09-22] MEDS: TRIAMTERENE 37.5 MG/HCTZ 25 MG (MAXZIDE) TABLET 1 TAB PO (23:44)
--- NOTE | 2021-09-22 23:45 | PC.NURSE ---
Discussed BP with ANGELA Fernandez pt not to be discharged until BP comes down. Will continue to monitor.
[2021-09-23] VITALS: BP 196/73; PULSE 74; RESP 16; O2SAT 96
[2021-09-23 00:25] VITALS: BP 183/68; PULSE 83; RESP 20; O2SAT 98
== END 2021-09-23 00:27 | disposition home or self-care (01) ==
PROVIDERS: Emergency Medicine; Emergency Provider Emergency Medicine; PCP Internal Medicine
DX: I10 Essential (primary) hypertension (principal); M17.11 Unilateral primary osteoarthritis, right knee; F17.210 Nicotine dependence, cigarettes, uncomplicated; Z79.899 Other long term (current) drug therapy
CPT/HCPCS: 36415; 71046; 73562; 80048; 84484; 85025; 85610; 85730; 93005; 99284; A9270

== ENCOUNTER 2022-12-14 11:53 | Outpatient (CLI) | payer MEDICARE, SELFPAY ==
[2022-12-14 20:11] LABS: Basophils Percent Auto 0.2 % (0.2-1.2); Eosinophils Absolute Auto 0.1 K/mm3 (0-0.3); Eosinophils Percent Auto 1.5 % (0-4.4); Hematocrit 43.1 % (37.0-47.0); Hemoglobin 13.7 g/dL (12.0-15.0); Immature Granulocyte Absolute 0.03 K/mm3 (0.00-0.031); Immature Granulocyte Percent A 0.6 % (0-0.5); Immature Platelet Fraction Pct 21.2 % (0.9-11.2); Lymphocytes Absolute Auto 1.43 K/mm3 (0.9-3.2); Lymphocytes Percent Auto 27.2 % (18.3-44.2); Mean Corpuscular HGB Conc 31.8 g/dl (32-36); Mean Corpuscular Hemoglobin 29.7 pg (26-34); Mean Corpuscular Volume 93.3 fl (80-100); Mean Platelet Volume 13.8 fl (7.4-10.4); Monocytes Absolute Auto 0.6 K/mm3 (0.1-0.6); Monocytes Percent Auto 10.5 % (2.6-8.5); Neutrophils Absolute Auto 3.2 K/mm3 (1.3-6.7); Platelet Count Result 125 k/mm3 (150-375); Red Blood Count 4.62 M/mm3 (4.2-5.4); Red Cell Distribution Width 13.1 % (11.5-14.5); White Blood Count 5.3 K/mm3 (4.5-10.0)
[2022-12-14 21:26] LABS: LDL Cholesterol Direct 101 mg/dL
[2022-12-14 21:58] LABS: Hypochromasia 1+ (NORMAL); Platelet Estimate Decreased (Adequate); Schistocytes None Seen (NORMAL)
== END 2022-12-14 11:54 | disposition home or self-care (01) ==
LOC: ANHGOSHLAB 11:54
PROVIDERS: PCP Family Medicine; Visit Provider Family Medicine
DX: R53.83 Other fatigue (principal); Z13.220 Encounter for screening for lipoid disorders; I10 Essential (primary) hypertension; R73.09 Other abnormal glucose
CPT/HCPCS: 36415; 80053; 80061; 83036; 85025; 85055

== ENCOUNTER → 2023-12-18 14:42 | Outpatient (CLI) | payer MEDICARE, SELFPAY ==
--- NOTE | ~2023-12-18 | XR_ITS ---
EXAM: XR hip LT min 2V DATE: 12/18/2023 15:05 HISTORY: M25.552 - Pain in left hip; chronic pain . COMPARISON: None available. FINDINGS: Decreased mineralization. No fracture or dislocation. No lytic or blastic lesion. Moderate left hip joint space narrowing with mild osteophytosis. Moderate degenerative change at the pubic sy mphysis. No erosion or periosteal change. Soft tissues within normal limits. IMPRESSION: Moderate left hip osteoarthritis. Moderate osteitis pubis. Reviewed, dictated and finalized at location K. INGS FINISHER
== END ==
PROVIDERS: PCP Family Medicine; Visit Provider Family Medicine
DX: M17.12 Unilateral primary osteoarthritis, left knee (principal)
CPT/HCPCS: 73502

== ENCOUNTER 2023-12-20 10:57 | Outpatient (CLI) | payer MEDICARE, SELFPAY ==
[2023-12-20 19:29] LABS: Appearance Urine Cloudy (Clear); Bacteria Urine 4+ /hpf; Bilirubin Urine Negative (Negative); Blood Urine Trace (Negative); Color Urine Yellow (Yellow); Glucose Urine UA Negative (Negative); Ketones Urine Negative (Negative); Leukocyte Esterase Ur 3+ LEU/UL (Negative); Nitrate Urine Positive (Negative); Non Pathogenic Casts 0-2; Protein Urine 1+ mg/dL (Negative); RBC Urine 0-2 /hpf (0-2); Specific Grav Ur 1.011 (1.001-1.035); Squamous Epithelial Cell Urine Few /hpf (Few); Urobilinogen Urine 0.2 mg/dL (<2.0); WBC Urine 51-100 /hpf; pH Urine 5.5 (5.0-9.0)
[2023-12-20 19:39] LABS: Alanine Aminotransferase 29 U/L (6-35); Albumin Level 4.8 g/dL (3.5-5.1); Alkaline Phosphatase 77 U/L (38-126); Anion Gap 10 mmol/L (8-16); Aspartate Amino Transferase 43 U/L (14-36); Bilirubin,Total 0.6 mg/dL (0.2-1.3); Blood Urea Nitrogen 19 mg/dL (7-17); Calcium 9.9 mg/dL (8.4-10.2); Carbon Dioxide 27 mmol/L (22-30); Chloride 104 mmol/L (98-107); Cholesterol 243 mg/dL (0-200); Estimated Glomerular Filt Rate > 60; Glucose 111 mg/dL (65-110); HDL Direct 56 mg/dL; Potassium 3.9 mmol/L (3.4-5.0); Sodium 141 mmol/L (137-145); Triglycerides 135 mg/dL (<150)
[2023-12-20 19:47] LABS: Basophils Percent Auto 0.3 % (0.2-1.2); Hematocrit 41.9 % (37.0-47.0); Hemoglobin 13.4 g/dL (12.0-15.0); Immature Granulocyte Absolute 0.04 K/mm3 (0.00-0.031); Immature Platelet Fraction Pct 19.6 % (0.9-11.2); Lymphocytes Percent Auto 35.4 % (18.3-44.2); Mean Corpuscular Hemoglobin 29.8 pg (26-34); Mean Corpuscular Volume 93.1 fl (80-100); Monocytes Absolute Auto 0.5 K/mm3 (0.1-0.6); Monocytes Percent Auto 12.9 % (2.6-8.5); Neutrophils Percent Auto 49.4 % (45.5-73.1); Platelet Count Result 129 k/mm3 (150-375); Red Cell Distribution Width 12.7 % (11.5-14.5)
[2023-12-20 19:48] LABS: Add Urine Microscopic? YES
[2023-12-20 19:50] LABS: LDL Cholesterol Direct 137 mg/dL
[2023-12-20 20:03] LABS: Anisocytosis 1+ (NORMAL); Large Platelets Present; Schistocytes None Seen (NORMAL)
[2023-12-20 22:25] LABS: Hemoglobin A1C 6.4 % (<5.7)
== END 2023-12-20 10:58 | disposition home or self-care (01) ==
LOC: ANHGOSHLAB 10:58
PROVIDERS: PCP Family Medicine; Visit Provider Family Medicine
DX: R53.83 Other fatigue (principal); Z13.228 Encounter for screening for other metabolic disorders; I10 Essential (primary) hypertension; Z13.220 Encounter for screening for lipoid disorders; Z13.29 Encounter for screening for other suspected endocrine disorder; R73.03 Prediabetes; R30.0 Dysuria
CPT/HCPCS: 36415; 80053; 80061; 81001; 83036; 84443; 85025; 85055; 87077; 87086; 87186

== ENCOUNTER 2024-06-19 09:31 | Outpatient (CLI) | payer MEDICARE, SELFPAY ==
--- NOTE | ~2024-06-19 | XR_ITS ---
Lumbosacral Spine: AP, oblique, and lateral views Clinical History: Pain Findings: The normal lordotic curve is maintained. No fracture evident. There is 6 mm anterolisthesis of L4 over L5. There is severe facet arthropathy at L4-L5 and L5-S1. There is mild facet joint degen erative change of the remaining lumbar spine. There is moderate degenerative disc narrowing at L5-S1. Remaining disc spaces are preserved. The sacroiliac joints are normally outlined. Impression: Advanced spondylosis of the lumbar spine, as above. 6 mm anterolisthesis of L4 over L5. Reviewed, dictated and finalized at location M. Impression: Advanced spondylosis of the lumbar spine, as above. 6 mm anterolisthesis of L4 over L5.
== END 2024-06-19 09:32 ==
PROVIDERS: PCP Family Medicine; Visit Provider Family Medicine
DX: M47.896 Other spondylosis, lumbar region (principal)
CPT/HCPCS: 72110

== ENCOUNTER 2024-08-11 08:00 | Outpatient (CLI) | payer MEDICARE, SELFPAY ==
--- NOTE | 2024-09-01 12:16 | WPDSLEEPSTUD ---
Sleep Study Date of Study: 08/11/24 Ordering Provider: Richard Peña DO Interpreting Physician: Rissa Butt MD Sleep Study Type: Split Polysomnogram Height: 1.52 m Weight: 72.121 kg Body Mass Index: 31.0 Neck Circumference (inches): 15.5 Soldier: 12 Reason for Sleep Study Hypersomnolence Sleep History Nereyda Victor is an 79-year-old woman with hypersomnolence. She had assistance completing her sleep survey due to a language barrier. Her main problem, according to the sleep survey ?when I take naps sitting down, when I wake up I feel surprised. Her medical comorbidities include hypertension, depression, and hip arthritis. She frequently awakens from sleep short of breath. She never wakes at night with heartburn, belching or coughing.??She occasional snores, however never snores loudly enough that others complain. She frequently has trouble sleeping when she has a cold. She never wakes up gasping for breath during the night. She never has breathing problems at night. She never sweats excessively at night. She occasionally notices her heart pounding or beating irregularly during the night. She constantly falls asleep during the day. She constant falls asleep involuntarily, never falls asleep while driving. She occasionally experiences loss of muscle tone with strong emotion. She never feels paralyzed on waking or falling asleep. She rarely experiences vivid dreams upon waking or falling asleep. She never feels afraid of going to sleep. She never has nightmares. She rarely recalls her dreams. She occasionally has thoughts racing through her mind. She occasionally feels sad or depressed. She occasionally feels anxiety. She frequently notices parts of her body jerk. She never kicks during the night. She rarely feels crawling or aching feelings in her legs. She never feels leg pain at night. She never has morning jaw pain, and never grinds her teeth at night. She occasionally feels bothered by pain during the day, is never awakened by pain during the night. She never wakes up feeling stiff in the morning, never wakes feeling sore or achy in the morning. She frequently awakens with pain in her neck, spine, or joints. Normal bedtime is 9:30 p.m., falling asleep quickly, waking 3 times at night for a trip to the bathroom. She is able to return to sleep in a few minutes. She wakes at 6:30 a.m., reports getting 9 hours of sleep per night. She keeps a similar schedule on the weekends, bedtime is 9:30 p.m., wake time is 7:00 a.m.. She takes naps in the afternoon or evening. She may feel refreshed after a short 10-15 minute nap. Feet she feels better in the morning compared to other times of day. Habits:??Tobacco: former smoker Caffeine: not mentioned Alcohol: none Recreational substances: none [facility] Past Medical History Medical History Abnormal glucose Bilateral leg weakness COVID-19 Encounter for screening for lipid disorder Hypertension, essential, benign Iliotibial band syndrome of right side Surgical History Surgical History No history of previous surgery Social History Social History Social History: the patient is retired she has worked various jobs. 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 She desires to be full code. She had a children but 1 was a stillborn. She tried to smoke in school But did not smoke routine easily. She Does not use any alcohol marijuana or illicit drugs. Caffeine-coffee Smoking packs per day: 0.2 Smoking cigarettes per day: 4.0 Years smoked: 10 Smoking pack-years: 2.00 Smoking status: Never smoker Alcohol intake: never Substance use: never Lack of Transportation: No Lack of Food: Sometimes True Current Housing: Decline to Answer Concerned About Future Housi
[2024-09-01 12:19] VITALS: BMI 31.0
== END 2024-08-12 06:50 | disposition home or self-care (01) ==
PROVIDERS: PCP Family Medicine; Visit Provider Family Medicine
DX: G47.10 Hypersomnia, unspecified (principal); G47.33 Obstructive sleep apnea (adult) (pediatric); G47.61 Periodic limb movement disorder
CPT/HCPCS: 95811

== ENCOUNTER 2024-09-01 08:57 | Outpatient (CLI) | payer MEDICARE, SELFPAY ==
--- NOTE | ~2024-09-01 | MR_ITS ---
MRI of the lumbar spine Clinical History: Back pain, radiculopathy Technique: Axial T2-weighted images, and sagittal T1-weighted, T2-weighted, and and T2 fat-sat images were acquired. Findings: There is no fracture or subluxation of the lumbar spine. Vertebral bodies maintain normal h eight. No abnormal bone marrow signal seen. At L1-L2, there is minimal disc bulge with mild facet arthropathy. No central canal stenosis. There i s mild bilateral neural foraminal narrowing. At L2-L3, there is minimal disc bulge with mild to moderate facet arthropathy. Minimal central canal stenosis noted. There is mild right neural foraminal narrowing. Left neural foramen preserved. At L3-L4, there is disc bulge with moderate to advanced facet arthropathy. There is moderate central canal stenosis. There is moderate right neural foraminal narrowing, and mild left neural foraminal na rrowing. At L4-L5, there is diffuse disc bulge and severe facet arthropathy, with severe spinal canal stenosis /thecal sac compression. There is moderate to advanced bilateral neural foraminal narrowing, left wor se than right. At L5-S1, there is mild disc bulge with severe facet arthropathy. No central canal stenosis or neural foraminal narrowing. Paravertebral soft tissues are unremarkable. Impression: Advanced degenerative spondylosis at L4-L5, as detailed above. Moderate degenerative spondylosis at L2-L3 and L3-L4, as detailed above. Reviewed, dictated and finalized at [facility]. Impression: Advanced degenerative spondylosis at L4-L5, as detailed above. Moderate degenerative spondylosis at L2-L3 and L3-L4, as detailed above.
== END 2024-09-01 08:58 | disposition home or self-care (01) ==
LOC: GOSHIMG 09:01
PROVIDERS: PCP Family Medicine; Visit Provider Nurse Practitioner Family
DX: M47.26 Other spondylosis with radiculopathy, lumbar region (principal)
CPT/HCPCS: 72148

== ENCOUNTER 2025-01-19 08:16 | Outpatient (CLI) | payer MEDICARE, SELFPAY ==
--- NOTE | ~2025-01-19 | US_ITS ---
EXAMINATION: US retroperitoneal duplex ltd DATE: 01/19/2025 09:10 INDICATION: Hypertension. TECHNIQUE: Multiple grayscale, color Doppler, and pulsed Doppler images of the kidneys and renal keiko aurelio were obtained. COMPARISON: None. FINDINGS: The aorta peak systolic velocity was not measured. There are kidney measures 10.1 x 4.6 x 3.5 cm . Th e right renal artery peak systolic velocity is 40 cm/s in the proximal segment, 104 cm/s in the mid s egment, and 47 cm/s in the distal segment. The left kidney measures 10.5 x 5.0 x 4.0 cm The left maurice l artery peak systolic velocity is 63 cm/s in the proximal segment, 79 cm/s in the mid segment, and 6 6 cm/s in the distal segment. IMPRESSION: 1. No Doppler evidence of renal artery stenosis. Reviewed, dictated and finalized at location B.
== END 2025-01-19 08:17 | disposition home or self-care (01) ==
PROVIDERS: PCP Nurse Practitioner Family; Visit Provider Internal Medicine Nephrology
DX: I10 Essential (primary) hypertension (principal)
CPT/HCPCS: 93976

== ENCOUNTER 2025-04-09 08:41 | Outpatient (CLI) | payer MEDICARE, SELFPAY ==
[2025-04-09 14:19] LABS: Kit Draw Collected
== END 2025-04-09 08:42 | disposition home or self-care (01) ==
LOC: ANHGOSHLAB 08:42
PROVIDERS: PCP Family Medicine; Visit Provider Internal Medicine Nephrology
DX: G47.33 Obstructive sleep apnea (adult) (pediatric) (principal); I10 Essential (primary) hypertension; R30.0 Dysuria
CPT/HCPCS: 36415

== ENCOUNTER 2025-07-09 08:41 | Outpatient (CLI) | payer MEDICARE, SELFPAY ==
[2025-07-09 14:34] LABS: Hematocrit 36.0 % (37.0-47.0); Hemoglobin 11.1 g/dL (12.0-15.0); Immature Granulocyte Percent A 0.3 % (0-0.5); Immature Platelet Fraction Pct 14.0 % (0.9-11.2); Lymphocytes Absolute Auto 0.98 K/mm3 (0.9-3.2); Mean Corpuscular HGB Conc 30.8 g/dl (32-36); Mean Corpuscular Hemoglobin 29.3 pg (26-34); Mean Corpuscular Volume 95.0 fl (80-100); Nucleated Red Blood Cells Absolute Auto 0.000 K/mm3 (0.0-0.012); Nucleated Red Blood Cells Perc 0.0 % (0.0-0.2); Platelet Count Result 147 k/mm3 (150-375); Red Blood Count 3.79 M/mm3 (4.2-5.4); White Blood Count 3.3 K/mm3 (4.5-10.0)
[2025-07-09 14:52] LABS: Alanine Aminotransferase 19 U/L (6-35); Albumin Level 4.6 g/dL (3.5-5.1); Alkaline Phosphatase 70 U/L (38-126); Anion Gap 10 mmol/L (4-12); Aspartate Amino Transferase 67 U/L (14-36); Bilirubin,Total 0.5 mg/dL (0.2-1.3); Blood Urea Nitrogen 24 mg/dL (7-17); Calcium 9.5 mg/dL (8.4-10.2); Carbon Dioxide 27 mmol/L (22-30); Chloride 99 mmol/L (98-107); Cholesterol 197 mg/dL (0-200); Estimated Glomerular Filt Rate > 60; Glucose 109 mg/dL (65-110); HDL Direct 51 mg/dL; Potassium 4.2 mmol/L (3.4-5.0); Sodium 136 mmol/L (137-145); Total Protein 8.1 g/dL (6.3-8.2); Triglycerides 80 mg/dL (<150)
[2025-07-09 17:14] LABS: Thyroid Stimulating Hormone Reflex 2.120 uIU/mL (0.465-4.68)
[2025-07-09 17:17] LABS: Hemoglobin A1C 6.4 % (<5.7)
== END 2025-07-09 08:42 | disposition home or self-care (01) ==
LOC: ANHGOSHLAB 08:42
PROVIDERS: PCP Nurse Practitioner Family; Visit Provider Nurse Practitioner Family
DX: R73.03 Prediabetes (principal); I10 Essential (primary) hypertension; E55.9 Vitamin D deficiency, unspecified
CPT/HCPCS: 36415; 80053; 80061; 82306; 83036; 84443; 85025; 85055